=== PATIENT | female | born 1990 | race Hispanic/Latino ===

== ENCOUNTER 2017-08-03 19:01 | Emergency (ER) | payer OTHER ==
[~2017-08-03] VITALS: Ht 160 cm; Wt 90.7 kg
[~2017-08-03 19:01] MED LIST: DIFLUNISAL500 MG PO; ORPHENADRINE C100 MG PO
[2017-08-03] MEDS ORDERED: LORAZEPAM 1 MG TAB PO ONE (19:45)
--- NOTE | 2017-08-03 20:50 | Diagnostic Imaging Report ---
ANKLE 3 + VIEWS RIGHT - 3 views HISTORY: Pain COMPARISON: None available. FINDINGS: Bones: No acute displaced fracture. Osseous alignment is within normal limits. Joints: The joint spaces are well-maintained. Soft tissues: Mild soft tissue swelling about the lateral malleolus. IMPRESSION: No acute radiographic abnormality. Signed by: Dr. Ny oHyos M.D. on 08/03/2017 8:47 PM
== END 2017-08-03 22:10 | disposition home or self-care (01) ==
LOC: ER 19:01
DX: M25.571 Pain in right ankle and joints of right foot (principal); S93.401A Sprain of unspecified ligament of right ankle, initial encounter; X58.XXXA Exposure to other specified factors, initial encounter; Y93.01 Activity, walking, marching and hiking; E78.5 Hyperlipidemia, unspecified
CPT/HCPCS: 36415; 82948

== ENCOUNTER 2018-05-12 23:02 | Observation (INO) | payer OTHER ==
[~2018-05-12] VITALS: Ht 162.6 cm; Wt 113.1 kg
--- OUTSIDE RECORDS SUMMARY | 2018-05-12 23:05 | XMS REPORT ---
[facility] Address Unknown Phone Unavailable Care Team Providers Care Film Touch Up Inspector Name Role Phone Taryn PEDROZA Unavailable Unavailable Problems This patient has no known problems. Allergies, Adverse Reactions, Alerts This patient has no known allergies or adverse reactions. Medications This patient has no known medications. Results Test Description Test Time Test Comments Text Results Atomic Results Result Comments ANKLE 3 + VIEWS RIGHT [place] [address] Patient Name: TIFFANI MADERA MR #: [id number] : 1990 Age/Sex: 27/F Req #: [id number] Adm Physician: Ordered by: CAROLINE WILLIAM BOILER TENDERS SUPERVISOR Report #: [id number] Location: ER Room/Bed: Procedure: [id number] DX/ANKLE 3 + VIEWS RIGHT Exam Date: 08/03/17 Exam Time: 2008 REPORT STATUS: Signed ANKLE 3 + VIEWS RIGHT - 3 views HISTORY: Pain COMPARISON: None available. FINDINGS: Bones: No acute displaced fracture. Osseous alignment is within normal limits. Joints: The joint spaces are well-maintained. Soft tissues: Mild soft tissue swelling about the lateral malleolus. IMPRESSION: No acute radiographic abnormality. Signed by: Dr. Ny Guzman M.D. on 08/03/2017 8:47 PM Dictated By: ROSE GUZMAN MD, MD 46 Transcribed By: RODRI on 08/03/172046 COPY TO: CAROLINE WILLIAM BOILER TENDERS SUPERVISOR
[2018-05-12] MEDS ORDERED: DIATRIZOATE MEGL/DIATRIZOA SOD 30 ML BTL PO ONE (23:31)
[2018-05-12 23:59] LABS: BASOPHILS # (AUTO) 0.1 (0.0-0.1); BASOPHILS % 0.4 % (0.0-1.0); EOSINOPHILS % 0.2 % (0.0-6.0); HEMATOCRIT 41.1 % (34.2-44.1); HEMOGLOBIN 13.6 g/dL (12.0-16.0); LYMPHOCYTES # (AUTO) 2.3 (1.0-3.2); LYMPHOCYTES % 11.7 % (18.0-39.1); MEAN CORPUSCULAR HEMOGLOBIN 28.5 pg (28-32); MEAN CORPUSCULAR HGB CONC 33.1 g/dL (31-35); MONOCYTES # (AUTO) 0.9 (0.2-0.8); MONOCYTES % 4.3 % (4.4-11.3); NEUTROPHILS # (AUTO) 16.4 (2.1-6.9); NEUTROPHILS % 82.9 % (38.7-80.0); PLATELET COUNT 306 x10e3/uL (140-360); RED BLOOD COUNT 4.78 x10e6/uL (3.6-5.1)
[2018-05-13] VITALS (10 sets, daily range): BP systolic 95–116; BP diastolic 54–72
[2018-05-13 00:13] LABS: ALANINE AMINOTRANSFERASE 22 IU/L (0-55); ALBUMIN 3.8 g/dL (3.5-5.0); ALBUMIN/GLOBULIN RATIO 1.1 (0.8-2.0); ALKALINE PHOSPHATASE 92 IU/L (40-150); AMYLASE 56 U/L (25-125); ANION GAP 17.9 mmol/L (8-16); BLOOD UREA NITROGEN 7 mg/dL (7-26); BUN/CREATININE RATIO 10 (6-25); CALCIUM 9.3 mg/dL (8.4-10.2); CARBON DIOXIDE 17 mmol/L (22-29); CHLORIDE 101 mmol/L (98-107); CREATININE, SERUM 0.71 mg/dL (0.57-1.11); EST GLOMERULAR FILTRATION RATE > 60 ML/MIN (60-); GLUCOSE 110 mg/dL (74-118); LIPASE 6 U/L (8-78); POTASSIUM 3.9 mmol/L (3.5-5.1); SODIUM 132 mmol/L (136-145)
[2018-05-13 00:45] LABS: CLARITY,URINE CLOUDY (CLEAR); COLOR,URINE YELLOW (YELLOW); LEUKOCYTE ESTERASE ,URINE NEGATIVE (NEGATIVE); NITRITE,URINE NEGATIVE (NEGATIVE); PROTEIN,URINE DIPSTICK TRACE (NEGATIVE)
[2018-05-13 00:46] LABS: BILIRUBIN,URINE NEGATIVE (NEGATIVE); KETONES,URINE 1+ (NEGATIVE); URINE UROBILINOGEN 0.2 mg/dL (0.2 - 1)
[2018-05-13 00:55] LABS: BACTERIA,URINE MANY /HPF; CALCIUM OXALATE CRYSTALS,UR MANY (FEW); EPITHELIAL CELLS,URINE MANY /LPF
[2018-05-13 00:56] LABS: PREGNANCY TEST, URINE NEGATIVE (NEGATIVE)
[2018-05-13] MEDS ORDERED: SODIUM CHLORIDE 0.9% 50ML 50 ML ONE (01:05)
[2018-05-13] MEDS ORDERED: IOPAMIDOL 370 MG/ML 200 ML INFUS..BTL INJ ONE (01:05)
[2018-05-13] MEDS ORDERED: ONDANSETRON HCL INJ 2MG/ML 2ML 2 MG/ML VIAL IV STA (01:07)
[2018-05-13] MEDS ORDERED: SODIUM CHLORIDE 0.9% 1000ML 1,000 ML IV ONE (01:15)
--- NOTE | 2018-05-13 02:26 | Diagnostic Imaging Report ---
EXAM: CT Abdomen and Pelvis WITH contrast INDICATION: ^PERIUMBILICAL ABDOMINAL PAIN RADIATING TO RIGHT SIDE ^[id number] ^0130 ^Y COMPARISON: None. TECHNIQUE: Abdomen and pelvis were scanned utilizing a multidetector helical scanner from the lung base to the pubic symphysis after administration of IV contrast. Coronal and sagittal reformations were obtained. Dose modulation, iterative reconstruction, and/or weight based adjustment of the mA/kV was utilized to reduce the radiation dose to as low as reasonably achievable. Routine protocol was performed. Scan was performed when during portal venous phase. IV CONTRAST: 100 mL of Isovue-370 ORAL CONTRAST: Gastroview COMPLICATIONS: None RADIATION DOSE: Total DLP: 856.66 mGy*cm Estimated effective dose: (DLP x 0.015 x size factor) mSv CTDIvol has been reviewed. It is below the limits set by the Radiation Protocol Committee (RPC). FINDINGS: LINES and TUBES: None. LOWER THORAX: Unremarkable HEPATOBILIARY: No focal hepatic lesions. No biliary ductal dilation. GALLBLADDER: No radio-opaque stones or sludge. No wall thickening. SPLEEN: No splenomegaly. PANCREAS: No focal masses or ductal dilatation. ADRENALS: No adrenal nodules KIDNEYS/URETERS: Kidneys enhance symmetrically. No hydronephrosis. No cystic or solid mass lesions. No stones. GI TRACT: No abnormal distention, wall thickening, or evidence of bowel obstruction. Appendix is mildly distended up to 0.8 cm, demonstrating mild mucosal hyperenhancement and surrounding fat stranding (series 301, image 53). PELVIC ORGANS/BLADDER: Unremarkable. LYMPH NODES: No lymphadenopathy. VESSELS: Unremarkable. PERITONEUM / RETROPERITONEUM: No free air or fluid. BONES: No acute osseous abnormality. SOFT TISSUES: Unremarkable. IMPRESSION: 1. Mildly distended appendix with mild surrounding fat stranding, concerning for early acute appendicitis. Findings discussed with Dr. Topete at 2:20 AM, on 05/13/2018. Signed by: Dr. Pedro Hwang MD on 05/13/2018 2:23 AM
[2018-05-13] MEDS ORDERED: MORPHINE SULFATE INJ 4 MG/ML INJ 1ML IV PRN (02:45)
[2018-05-13] MEDS ORDERED: ONDANSETRON HCL INJ 2MG/ML 2ML 2 MG/ML VIAL IV PRN (02:45)
[2018-05-13] MEDS ORDERED: ACETAMINOPHEN 1000 MG/100 ML IV PRN (02:45)
[2018-05-13] MEDS: PIPER-TAZ 3.375 GM 50 ML IV SCH ×4 (03:15→21:30)
[2018-05-13] MEDS: SODIUM CHLORIDE 0.9% 1000ML 1,000 ML IV SCH ×3 (03:15→16:05)
--- NOTE | 2018-05-13 03:15 | NUR ---
patient received from ER. patient is resting and AAOx4. Resp even and unlabored. No acute distress noted. Patient denies of any pain or discomfort. Oriented to room. Assessment done. call light within reach. instruct to call for assistance. bed low/locked. continue to monitor closely
--- NOTE | 2018-05-13 11:35 | NUR ---
PT OFF THE UNIT AT THIS TIME, VIA STRETCHER WITH ASSIST X2.
[2018-05-13] MEDS ORDERED: BUPIVACAINE 0.5%/EPI 30 ML SDV INJ ONE (11:42)
--- NOTE | 2018-05-13 12:50 | NUR ---
Attempted to see pt. Pt in OR for procedure
[2018-05-13] MEDS ORDERED: FENTANYL CITRATE/PF 100MCG/2 ML INJ ONE ×2 (13:19→17:39)
--- NOTE | 2018-05-13 13:26 | Operative Report ---
DATE OF PROCEDURE: May 13, 2018 PREOPERATIVE DIAGNOSIS: Acute appendicitis. POSTOPERATIVE DIAGNOSIS: Acute appendicitis. OPERATIVE PROCEDURE: Laparoscopic appendectomy. THERMAL CUTTING TRACER MACHINE OPERATOR: None. ANESTHESIA: General. INDICATIONS: A 28-year-old female with 2-day history of pain in the right lower quadrant with CT scan showing evidence of appendicitis. Patient has consented for laparoscopic appendectomy. Attendant risks discussed. PROCEDURE FINDINGS: Appendicitis. DESCRIPTION OF PROCEDURE: Patient was brought to the OR intubated. Abdomen was prepped with alcohol and draped in a sterile fashion. An infraumbilical incision was made and a 12-mm port inserted. Insufflation then began. Under direct vision, other port sites were placed in the right upper quadrant and right lower quadrant. The appendix was then located. It was noted to be grossly inflamed. The neck of the appendix was isolated by controlling the mesoappendix with the LigaSure instrument down to the neck, which was then ligated with #0 PDS Endo loop ties. The appendix was then amputated, and the stump of the appendix was cauterized. The appendix was placed in an Endo pouch and retrieved out of the peritoneal cavity. The operative field was irrigated and hemostasis achieved. All ports were removed under direct vision. Fascia closed with 0 Vicryl. Skin closed with subcuticular stitch. Patient was extubated and transported to the recovery room. Estimated blood loss was 5 mL. Job#: [id number]
--- NOTE | 2018-05-13 13:32 | History and Physical ---
CHIEF COMPLAINT: Abdominal pain. HISTORY OF PRESENT ILLNESS: The patient is a 28-year-old female with 2-day history of pain in lower abdomen with nausea, but no vomiting, no fever, chills or diarrhea. PAST MEDICAL HISTORY: Positive for sections. ALLERGIES: PATIENT HAS NO DRUG ALLERGIES. SOCIAL HABITS: She does not smoke or drink alcohol. REVIEW OF SYSTEMS: No chest pain or shortness of breath. PHYSICAL EXAMINATION GENERAL: Patient is awake, alert, in moderate discomfort. VITAL SIGNS: Stable, afebrile. HEENT: Sclerae anicteric. NECK: Supple. LUNGS: Clear. HEART: Regular rate and rhythm. ABDOMEN: Soft with guarding tenderness and rebound in right lower quadrant. EXTREMITIES: Without cyanosis or edema. White cell count is 20,000, hemoglobin 13. Creatinine of 0.7. CT scan showed inflamed appendix. ASSESSMENT: Acute appendicitis. PLAN: Laparoscopic appendectomy. Attendant risks have been discussed with patient in detail. Job#: [id number] MICHELLE
--- NOTE | 2018-05-13 13:39 | NUR ---
PT ARRIVED BACK TO UNIT, NO C/O PAIN. BANDAGES OBSERVED OVER 3 TROCHAR SITES TO ABD, CDI. ADVANCED TO CLEAR LIQUID DIET, PT IS TOLERATING LIQUIDS WELL. RESP EVEN AND UNLABORED. IV PATENT TO L FOREARM.
--- NOTE | 2018-05-13 15:20 | NUR ---
PT IN AMBULATING IN HALLWAY, WITH 1 ASSIST. STEADY GAIT OBSERVED.
[2018-05-13] MEDS ORDERED: NEOSTIGMINE 5 MG/5ML SYR ONE (17:15)
[2018-05-13] MEDS ORDERED: SEVOFLURANE INHAL SOLN 250 ML PEN BTL ONE (17:15)
[2018-05-13] MEDS ORDERED: PROPOFOL IV EMULSION 10 MG/ML 20 ML VIAL ONE (17:15)
[2018-05-13] MEDS ORDERED: LIDOCAINE HCL 2% LOCAL INJ 5 ML SDV VIAL INJ ONE (17:15)
[2018-05-13] MEDS ORDERED: ROCURONIUM BROMIDE 10 MG/ML 5ML VIAL ONE (17:15)
[2018-05-13] MEDS ORDERED: KETOROLAC TROMETHAMINE 30 MG/ML VIAL ONE (17:15)
[2018-05-13] MEDS ORDERED: GLYCOPYRROLATE INJ 1MG/ 5 ML SYR ONE (17:15)
[2018-05-13] MEDS ORDERED: DEXAMETHASONE SOD PHOS INJ 4 MG/ML VIAL ONE (17:15)
[2018-05-13] MEDS ORDERED: CEFOXITIN SOD 1 GM VIAL ONE (17:15)
[2018-05-13] MEDS ORDERED: ONDANSETRON HCL INJ 2MG/ML 2ML 2 MG/ML VIAL ONE (17:15)
[2018-05-13] MEDS ORDERED: MIDAZOLAM HCL 2 MG/2 ML VIAL ONE (17:39)
--- NOTE | 2018-05-13 18:03 | NUR ---
PT AMBULATING IN HALLWAY AT THIS TIME, WITH ASSIST X1. PAIN AT MODERATE LEVER, PT STATED 2 ON 0-10 SCALE. TOLERATING ACTIVITY WELL. IV PATENT, NO REDNESS OR SWELLING TO INSERTION SITE.
--- NOTE | 2018-05-13 19:00 | NUR ---
WALKING ROUNDS PERFORMED, RECEIVED PT LAYING SEMI FOWLERS IN BED, AAOX3, RR EVEN AND NON-LABORED, ON RA. NO S/SX OF DISTRESS NOTED. LEFT PT LAYING SEMI FOWLERS IN BED, BED IN LOW LOCKED POSITION, SIDE RAILS UPX2, CALL LIGHT AND PHONE WITHIN REACH. FAMILY AT BEDSIDE.
--- NOTE | 2018-05-13 21:00 | NUR ---
IV TO (R) ARM NOTED TO BE TENDER WITH PALPATION AND SWELLING. IV DISCONTINUED, CATHETER TIP INTACT, PRESSURE AND DRESSING APPLIED NEW IV STARTED TO (L) FA 22G. FLUSHES WITHOUT DIFFICULTY, BLOOD RETURN NOTED.
[2018-05-14] VITALS: BP 119/65
[2018-05-14] MEDS: SODIUM CHLORIDE 0.9% 1000ML 1,000 ML IV SCH ×2 (02:40→07:55)
[2018-05-14] MEDS: PIPER-TAZ 3.375 GM 50 ML IV SCH ×3 (03:45→14:39)
[2018-05-14 04:00] VITALS: BP_SYST 124; BP_SYST 132; BP_DIAS 62; BP_DIAS 85
[2018-05-14 05:25] LABS: BASOPHILS % 0.3 % (0.0-1.0); HEMOGLOBIN 12.1 g/dL (12.0-16.0); LYMPHOCYTES % 21.1 % (18.0-39.1); MEAN CORPUSCULAR HEMOGLOBIN 28.2 pg (28-32); MEAN CORPUSCULAR HGB CONC 32.7 g/dL (31-35); MEAN CORPUSCULAR VOLUME 86.2 fL (81-99); MONOCYTES # (AUTO) 0.9 (0.2-0.8); MONOCYTES % 6.1 % (4.4-11.3); NEUTROPHILS # (AUTO) 10.2 (2.1-6.9); PLATELET COUNT 295 x10e3/uL (140-360); RED BLOOD COUNT 4.29 x10e6/uL (3.6-5.1); RED CELL DISTRIBUTION WIDTH 14.1 % (11.7-14.4)
[2018-05-14 05:58] LABS: ALANINE AMINOTRANSFERASE 16 IU/L (0-55); ALBUMIN 3.1 g/dL (3.5-5.0); ALBUMIN/GLOBULIN RATIO 0.9 (0.8-2.0); ALKALINE PHOSPHATASE 81 IU/L (40-150); ANION GAP 13.6 mmol/L (8-16); BLOOD UREA NITROGEN 6 mg/dL (7-26); BUN/CREATININE RATIO 8 (6-25); CALCIUM 8.8 mg/dL (8.4-10.2); CARBON DIOXIDE 20 mmol/L (22-29); CHLORIDE 106 mmol/L (98-107); CREATININE, SERUM 0.71 mg/dL (0.57-1.11); EST GLOMERULAR FILTRATION RATE > 60 ML/MIN (60-); GLUCOSE 96 mg/dL (74-118); POTASSIUM 3.6 mmol/L (3.5-5.1); SODIUM 136 mmol/L (136-145)
--- NOTE | 2018-05-14 06:32 | NUR ---
PT REPORTS 4/10 PAIN TO ANTERIOR ABD. PT REFUSING MORPHINE. CALL PLACED FOR MD ISAACS CONCERNING PAIN MANAGEMENT.
[2018-05-14] MEDS ORDERED: HYDROCODONE/APAP 5MG-325MG TAB PO PRN (07:00)
--- NOTE | 2018-05-14 07:16 | NUR ---
Received patient, patient awake resting in bed at this time. No signs of distress at this time. Call light in reach, will continue to monitor.
[2018-05-14 07:49] VITALS: BP 119/77
--- NOTE | 2018-05-14 09:30 | NUR ---
Patient A/O X3, even respirations unlabored on RA. Patient is ambulatory, skin intact, no edema. Trocar sites on abdomen are clean/dry&intact. Left FA 20 gauge IV SL. No complaints or discomfort at this time, call light in reach. Will continue to monitor.
[2018-05-14 09:58] VITALS: BP 119/77
[2018-05-14 13:09] VITALS: BP 133/75
[2018-05-14] MEDS ORDERED: TYLENOL WITH C1 EACH PO (14:44)
--- NOTE | 2018-05-14 15:00 | NUR ---
Removed patients IV, catheter tip intact and pressure dressing applied.
--- NOTE | 2018-05-14 15:19 | NUR ---
Patient discharged from facility. Patient gathered all personal belongings, discharge instructions, and prescriptions. No signs of distress when leaving facility.
== END 2018-05-14 15:19 | disposition home or self-care (01) ==
LOC: ER 23:02 → ERHOLD 05-13 02:45 → MED/SURG 05-13 03:18
PROVIDERS: ADMIT Surgery; ATTEND Surgery
DX: K35.80 Unspecified acute appendicitis (principal)
CPT/HCPCS: 36415 ×2; 44970; 74177; 80053 ×2; 81001; 81025; 82150; 83690; 85025 ×2; 88304; 96374; 99284; G0378 ×2; J0694; J1100; J1885; J2001; J2250; J2405; J2543 ×2; J2704; J3490; J7030; Q9967

== ENCOUNTER 2019-03-06 18:50 | Emergency (ER) | payer MEDICARE, OTHER ==
[~2019-03-06] VITALS: Ht 162.6 cm; Wt 112.9 kg
[~2019-03-06 18:50] MED LIST changes: +TYLENOL WITH C1 EACH PO
[2019-03-06] MEDS ORDERED: KETOROLAC TROMETHAMINE 60 MG/2 ML VIAL IM ONE (21:00)
[2019-03-06] MEDS ORDERED: LIDOCAINE 4% PATCH TP SCH (21:00)
[2019-03-06 21:53] LABS: CLARITY,URINE CLOUDY (CLEAR); COLOR,URINE YELLOW (YELLOW)
[2019-03-06 21:54] LABS: BILIRUBIN,URINE NEGATIVE (NEGATIVE); KETONES,URINE NEGATIVE (NEGATIVE); LEUKOCYTE ESTERASE ,URINE NEGATIVE (NEGATIVE); NITRITE,URINE NEGATIVE (NEGATIVE); PROTEIN,URINE DIPSTICK NEGATIVE (NEGATIVE); URINE UROBILINOGEN 0.2 mg/dL (0.2 - 1)
[2019-03-06 22:01] LABS: AMORPHOUS SEDIMENT,URINE MANY (FEW); BACTERIA,URINE FEW /HPF; EPITHELIAL CELLS,URINE FEW /LPF; RBC,URINE 0-5 /HPF (0-5); WBC,URINE (MAN) 0-5 /HPF (0-5)
[2019-03-07 00:40] LABS: BASOPHILS # (AUTO) 0.1 (0.0-0.1); BASOPHILS % 0.4 % (0.0-1.0); EOSINOPHILS # (AUTO) 0.1 (0.0-0.4); EOSINOPHILS % 0.7 % (0.0-6.0); HEMATOCRIT 37.2 % (34.2-44.1); HEMOGLOBIN 12.1 g/dL (12.0-16.0); LYMPHOCYTES # (AUTO) 3.5 (1.0-3.2); MEAN CORPUSCULAR HEMOGLOBIN 28.2 pg (28-32); MEAN CORPUSCULAR HGB CONC 32.5 g/dL (31-35); MEAN CORPUSCULAR VOLUME 86.7 fL (81-99); MONOCYTES # (AUTO) 0.8 (0.2-0.8); MONOCYTES % 6.7 % (4.4-11.3); NEUTROPHILS % 63.8 % (38.7-80.0); PLATELET COUNT 315 x10e3/uL (140-360); RED BLOOD COUNT 4.29 x10e6/uL (3.6-5.1); RED CELL DISTRIBUTION WIDTH 14.6 % (11.7-14.4)
[2019-03-07 00:53] LABS: ANION GAP 14.6 mmol/L (8-16); BLOOD UREA NITROGEN 9 mg/dL (7-26); BUN/CREATININE RATIO 13 (6-25); CALCIUM 8.7 mg/dL (8.4-10.2); CARBON DIOXIDE 22 mmol/L (22-29); CHLORIDE 103 mmol/L (98-107); CREATININE, SERUM 0.68 mg/dL (0.57-1.11); EST GLOMERULAR FILTRATION RATE > 60 ML/MIN (60-); GLUCOSE 87 mg/dL (74-118); POTASSIUM 3.6 mmol/L (3.5-5.1); SODIUM 136 mmol/L (136-145)
--- NOTE | 2019-03-07 01:44 | Diagnostic Imaging Report ---
EXAM: First Trimester Obstetric Pelvic Ultrasound INDICATION: RLQ PAIN, preg COMPARISON: None TECHNIQUE: Grayscale transverse and sagittal transabdominal and transvaginal images were obtained of the pelvis. Transvaginal imaging was medically necessary to better evaluate the endometrium, adnexa, and fetus. CLINICAL HISTORY: 29 year old Last menstrual period: 01/04/2019 Clinical gestational age: 8 weeks 6 days FINDINGS: Uterus: Orientation: Normal Size: 10.7 x 5.2 x 6.6 cm, enlarged Mass: None Cervix: Normal Gestational Sac: Location: Intrauterine Average sac diameter: 3.36 cm Estimated sonographic GA: 8 weeks 6 days Appearance: Normal in contour Subchorionic hemorrhage: None Yolk sac: Normal Embryo/Fetus: [place] rump length: 1.67 cm Estimated sonographic GA: 8 weeks 1 day Cardiac activity: 164 bpm Ovaries not seen. Cul-de-sac: No free fluid IMPRESSION: 1. Viable intrauterine : Routine followup. 2. Estimated sonographic gestational age: 8 weeks 1 day Signed by: Agustín Galvez DO on 03/07/2019 1:40 AM
== END 2019-03-07 07:16 | disposition home or self-care (01) ==
LOC: ER 18:50
DX: R07.89 Other chest pain (principal); R11.0 Nausea; R10.31 Right lower quadrant pain; E78.5 Hyperlipidemia, unspecified; R01.1 Cardiac murmur, unspecified
CPT/HCPCS: 36415; 76817; 80048; 81001; 84702; 85025; 99283